=== PATIENT | female | born 1990 | race Caucasian/White ===

== ENCOUNTER 2019-04-15 00:33 | Inpatient (IN) | payer OTHER ==
[~2019-04-15] VITALS: Ht 165.1 cm; Wt 209.0 kg
[2019-04-15] MEDS ORDERED: PRENATABS RX T1 EACH PO (01:36)
[2019-04-15] MEDS ORDERED: ASA-BUTALB-CAF1 EACH PO (01:37)
== END 2019-04-17 12:46 | disposition home or self-care (01) | DRG 807 ==
LOC: LDR 00:33 → OB/GYN 03:55
PROVIDERS: ADMIT Specialist
PROC: 10E0XZZ Delivery of Products of Conception, External Approach (ICD-10-PCS; principal; 2019-04-15)
PROC: 0HQ9XZZ Repair Perineum Skin, External Approach (ICD-10-PCS; 2019-04-15)
PROC: 4A1HXCZ Monitoring of Products of Conception, Cardiac Rate, External Approach (ICD-10-PCS; 2019-04-15)
PROC: 4A033R1 Measurement of Arterial Saturation, Peripheral, Percutaneous Approach (ICD-10-PCS; 2019-04-15)
DX: O70.0 First degree perineal laceration during delivery (principal); Z37.0 Single live birth; Z3A.36 36 weeks gestation of pregnancy; Z22.330 Carrier of Group B streptococcus